=== PATIENT | male | born 1975 | race Caucasian/White ===

== ENCOUNTER 2017-12-17 18:34 | Emergency (ER) | payer BC ==
[~2017-12-17] VITALS: Ht 172.7 cm; Wt 77.1 kg
[2017-12-17 18:49] VITALS: BP_SYST 142
[2017-12-17] MEDS ORDERED: BACITRACIN 1 GM OINT TP ONE (20:00)
[2017-12-17] MEDS ORDERED: CEPHALEXIN 500 MG CAPSULE PO ONE (20:00)
[2017-12-17] MEDS ORDERED: DIPH-TET-PERTUS Vaccine 0.5 ML VIAL (ADACEL) IM ONE (20:00)
[2017-12-17 20:45] VITALS: BP_SYST 129
== END 2017-12-17 20:45 | disposition home or self-care (01) ==
LOC: SED 18:34
DX: S50.812A Abrasion of left forearm, initial encounter (principal); S50.811A Abrasion of right forearm, initial encounter; L29.9 Pruritus, unspecified; R03.0 Elevated blood-pressure reading, without diagnosis of hypertension; X58.XXXA Exposure to other specified factors, initial encounter; Y93.64 Activity, baseball; Y92.89 Other specified places as the place of occurrence of the external cause; Y99.8 Other external cause status
CPT/HCPCS: 90715; 99283